=== PATIENT | male | born 1955 | race Caucasian/White ===

== ENCOUNTER 2020-11-09 13:15 | Outpatient (CLI) | payer MEDICARE, SELFPAY ==
[2020-11-09 13:32] VITALS: BP 126/63; PULSE 87; RESP 17; TEMP 35.7; O2SAT 98; BMI 34.9
--- NOTE | 2020-11-09 13:45 | AMB.MCA ---
Patient Information BENJAMIN COVID test results: No Data to Display Criteria/Plan Inclusion/Exclusion Criteria weight >/= 40kg, + direct test </= 10 days ago and symptom onset </= 10 days ago age >/= 65 no increase oxygen requirement (if chronically on oxygen) Patient education patient/caregiver received/reviewed fact sheet, Emergency Use Authorization/unapproved drug status discussed with patient/caregiver, alternatives to this treatment discussed with patient/caregiver, risks and benefits of medication reviewed with patient/caregiver, patient/caregiver given opportunity for questions, which were answered and patient/caregiver consents to receiving Monoclonal Antibody Treatment Plan for treatment Meets criteria for Monoclonal Antibody infusion Ordering Monoclonal Antibody infusion for today
[2020-11-09 14:19] VITALS: BP 113/68; PULSE 80; RESP 18; TEMP 36.6; O2SAT 96
[2020-11-09 14:32] VITALS: BP 111/56; PULSE 76; RESP 17; TEMP 36.5; O2SAT 94
[2020-11-09 16:26] VITALS: BP 120/87; PULSE 72; RESP 18; TEMP 37.1; O2SAT 94
--- NOTE | 2020-11-18 15:46 | DCPLANNER ---
late entry - child support case officer called patient on 11.12.20 to check on patient after getting the BAM infusion - unable to speak with patient at this time. A voicemail was left for patient to return case aide phone call. 11.18.20 - operations manager assistant called to check on patient after getting the BAM infusion. operations manager assistant spoke with patients , she stated that patient is doing well now. operations manager assistant was told that patient was admitted to [facility] due to his oxygen levels being low, he is now home and doing great.
== END 2020-11-09 16:26 | disposition home or self-care (01) ==
LOC: OPS 13:18
PROVIDERS: PCP Family Medicine; Referring Provider Nurse Practitioner Family; Visit Provider Family Medicine
DX: U07.1 COVID-19 (principal)
CPT/HCPCS: 96365

== ENCOUNTER 2023-02-06 10:24 | Outpatient (CLI) | payer OTHER, SELFPAY ==
[2023-02-06 10:43] VITALS: PULSE 102; RESP 18; O2SAT 98
[2023-02-06] MEDS: albuterol 2.5 mg/3 mL Neb INHALATION (10:43)
[2023-02-06 10:48] VITALS: PULSE 98
== END 2023-02-06 10:25 | disposition home or self-care (01) ==
LOC: RT 10:29
PROVIDERS: PCP Family Medicine; Visit Provider Chiropractor
DX: J84.10 Pulmonary fibrosis, unspecified (principal)
CPT/HCPCS: 94060; J7613

== ENCOUNTER 2024-03-17 07:37 | Outpatient (CLI) | payer OTHER, SELFPAY ==
--- NOTE | 2024-03-17 07:47 | USCV_ITS ---
Ray Wolf Age: 69 Gender: M : 1955 Exam Date: 03/17/2024 07:55 Ordering Phys: Man Abrams Technologist: Exam Location: [facility] [place] Indication: cp sob BP: 124 / 64 HR: 68 Rhythm: Sinus Technical Quality: Adequate MEASUREMENTS (Male / Female) Normal Values 2D ECHO LV Diastolic Diameter PLAX 4.5 cm 4.2 - 5.9 / 3.9 - 5.3 cm IVS Diastolic Thickness 1.1 cm 0.6 - 1.0 / 0.6 - 0.9 cm IVS Systolic Thickness 1.5 cm LVPW Diastolic Thickness 1.5 cm 0.6 - 1.0 / 0.6 - 0.9 cm LVPW Systolic Thickness 1.3 cm LVOT Diameter 2.0 cm LV Ejection Fraction 2D Teich 64.3 % LV Ejection Fraction MOD 2C 68.6 % LV Ejection Fraction 2C AL 69.2 % LA Diameter 4.5 cm RA Systolic Volume 4C AL 38.0 ml RA Systolic Volume 4C MOD 37.1 ml Aorta at Sinotubular Diameter 3.3 cm M-MODE LA Ao Ratio MM 1.4 AV Cusp Separation MM 1.2 cm DOPPLER AV Peak Velocity 247.8 cm/s LVOT Peak Velocity 103.0 cm/s AV Area Cont Eq vti 1.5 cm squared AV Area Cont Eq pk 1.3 cm squared MV Area PHT 3.2 cm squared Mitral E to A Ratio 1.0 TR Peak Velocity 161.0 cm/s TR Peak Gradient 10.4 mmHg TV Peak E Velocity 103.0 cm/s Right Atrial Pressure 3.0 mmHg Pulmonary Artery Systolic Pressu 13.4 mmHg PV Peak Velocity 107.0 cm/s FINDINGS Left Ventricle Left ventricle is normal in size. LV systolic function is normal with EF of 55 to 60%. No regional wall motion abnormalities are seen. Right Ventricle Normal in size and function Right Atrium Normal in size Left Atrium Dilated Mitral Valve Structurally normal mitral valve. Aortic Valve Aortic valve is thickened. Mild aortic stenosis aortic valve area 1.54 cm squared and mean gradient of 10 mmHg. Trace aortic regurgitation. Tricuspid Valve Insufficient TR jet to evaluate RVSP Pulmonic Valve Not well visualized Pericardium Normal Aorta Normal in size IVC Not well visualized CONCLUSIONS LV systolic function is normal with EF of 55-60% Left atrial dilation Mild aortic stenosis Trace aortic regurgitation. No comparison studies are available. Carl Martinez MD (Electronically Signed) Final Date: 28 March 2024 19:12 S
== END 2024-03-17 07:38 | disposition home or self-care (01) ==
LOC: RAD 07:37
PROVIDERS: PCP Family Medicine; Visit Provider Chiropractor
DX: I25.9 Chronic ischemic heart disease, unspecified (principal); D50.9 Iron deficiency anemia, unspecified; I51.7 Cardiomegaly
CPT/HCPCS: 93306